=== PATIENT | male | born 1980 | race Caucasian/White ===

== ENCOUNTER 2022-06-08 22:39 | Observation (INO) ==
[2022-06-09] MEDS ORDERED: DEXAMETHASONE SOD INJ 4 MG/ML VIAL IV STA (00:23)
[2022-06-09] MEDS ORDERED: AMPICILLIN/SULBACTAM SOD 3,000 MG in 0.9 % SODIUM CHLORIDE 100 ML IV STA (00:23)
[2022-06-09 00:56] LABS: iSTAT Ionized Calcium 1.15 mmol/l (1.12-1.32); iSTAT Potassium 3.8 mmol/L (3.3-5.0)
[2022-06-09 01:06] LABS: Basophils # (auto) 0.08 K/uL (0-0.2); Basophils % (auto) 0.4 %; Eosinophils # (auto) 0.01 K/uL (0-0.50); Hematocrit (blood only) 49.5 % (42.0-52.0); Hemoglobin 16.6 g/dl (14.0-18.0); Immature Granulocytes # (auto) 0.07 K/uL (0.01-0.20); Immature Granulocytes % (auto) 0.3 %; Lymphocytes # (auto) 2.14 K/uL (1.2-3.4); Lymphocytes % (auto) 10.4 %; Mean Corpuscular Hemoglobin 27.8 pg (25.0-34.0); Mean Corpuscular Hgb Conc 33.5 g/dL (32.0-36.0); Mean Corpuscular Volume 82.8 fL (80.0-100.0); Mean Platelet Volume 9.6 fL (9.4-12.4); Monocytes # (auto) 1.77 K/uL (0.11-0.59); Monocytes % (auto) 8.6 %; Neutrophils # (auto) 16.55 K/uL (1.40-6.50); Neutrophils % (auto) 80.3 %; Platelet Count 268 K/uL (130-400); RDW Coefficient of Variation 13.9 % (11.5-14.5); RDW Standard Deviation 41.6 fL (36.4-46.3); Red Blood Count 5.98 M/uL (4.70-6.10); White Blood Count 20.62 K/ul (4.8-10.8)
[2022-06-09] MEDS ORDERED: OPTIRAY 350 100ml IV ONE (01:07)
[2022-06-09 01:17] LABS: Albumin Globulin Ratio 1.2 (0.9-2); Albumin Level 4.8 gm/dl (3.4-5.0); BUN Creatinine Ratio 12.8 (10-20); Bilirubin,Total 1.6 mg/dl (0.2-1.0); Calcium 9.6 mg/dl (8.6-10.3); Creatinine Clr Calc Pharmacy 111.1 ml/min; Est GFR (African American) 95.8 ml/min; Est GFR (Non-African American) 82.7 ml/min; Potassium 3.8 mmol/L (3.5-5.1); Total Protein 8.8 gm/dl (6.0-8.3)
--- NOTE | 2022-06-09 01:58 | CT Scan Report ---
Exam(s): CT NECK With Contrast IV Amt: 83 ML EXAM: CT Neck With Intravenous Contrast CLINICAL HISTORY: Reason for exam: right peritonsillar edema, possible abscess. TECHNIQUE: Axial computed tomography images of the neck with intravenous contrast. CTDI is 18.84 mGy and DLP is 556.19 mGy-cm. Automated exposure control was utilized for the study. A dose lowering technique was utilized adhering to the principles of ALARA. CONTRAST: Patient received 83 ML of IV contrast COMPARISON: No relevant prior studies available. FINDINGS: Oropharynx: There is moderate right-sided peritonsillar edema with a 4. 6 x 1.6 x 1.2 cm fluid collection (image 35 series 301 and image 161 series 3). Hypopharynx: Unremarkable. Larynx: Unremarkable. Normal epiglottis. Trachea: Unremarkable. Retropharyngeal space: Unremarkable. Submandibular/parotid glands: Unremarkable. Glands are normal in size. Thyroid: Unremarkable. No enlarged or calcified nodules. Bones/joints: No acute fracture. Soft tissues: Unremarkable. Vasculature: No acute findings. Lymph nodes: Unremarkable. No lymphadenopathy. Lung apices: Unremarkable as visualized. IMPRESSION: 4 cm right peritonsillar abscess. Electronically signed by: Naveen Mcclure MD 06/09/22 01:56 AM
--- NOTE | 2022-06-09 02:26 | Emergency Department Note ---
Impression & Plan Peritonsillar abscess ED Provider Note CHIEF COMPLAINT: Sore throat day HISTORY OF PRESENT ILLNESS: This 42-year-old male patient presents to the emergency department via private vehicle for evaluation of sore throat for 1 day. The patient states that he went to urgent care earlier this morning due to the sore throat. He states that he wanted a strep test. This was completed and was negative. The patient was started on Augmentin and prednisone at that time. Throughout the day today, the swelling on the right side of the throat has worsened and the patient is concerned that there is an abscess formed. He does note a fever with Tmax of 101 F earlier today. The patient is having difficulty swallowing due to the pain and swelling. The patient denies any difficulty breathing. REVIEW OF SYSTEMS: A 10 system review of systems was performed with positives and pertinent negatives listed in the history of present illness. All other systems were reviewed and are negative. ALLERGIES: Clarithromycin PHYSICAL EXAM: VITALS: Vitals are noted on the nurse's note and reviewed by myself. Vital signs stable. GENERAL: This is a 42-year-old male, in no acute distress, nondiaphoretic, well- developed well-nourished. SKIN: The skin was without rashes, erythema, edema, or bruising. There is no tenting of the skin. Capillary refill less than 2 seconds. HEAD: Normocephalic atraumatic. EARS: External auditory canals clear, tympanic membranes pearly awan without erythema or effusion bilaterally. EYES: Pupils equal round and reactive to light and accommodation. Conjunctivae without injection, sclerae without icterus. Extraocular movements intact. NOSE: Patent, turbinates without inflammation or discharge. No sinus tenderness. MOUTH: Mucous membranes moist. 4+ right-sided tonsillar enlargement. Pharynx is erythematous and exudative on the right. Uvula midline. Airway patent. Tongue does not deviate. NECK: Supple without nuchal rigidity. Anterior cervical lymphadenopathy. Cervical spine is nontender. No JVD. No stridor HEART: Regular rate and rhythm without murmurs gallops or rubs. LUNGS: Clear to auscultation bilaterally without wheezes, rales or rhonchi. No retractions or accessory muscle use. MUSCULOSKELETAL: No muscle atrophy, erythema, or edema noted. Full range of motion without joint tenderness in all extremities. No tenderness to palpation. Normal gait. Strength 5/5 throughout. NEURO: Patient was alert and oriented to person place and time. No focal neurological deficits. EMERGENCY DEPARTMENT COURSE: The patient was seen and evaluated as above. 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 IV access obtained, labs drawn. Labs show leukocy tosis of 20,000. Question infection vs. reactive due to steroids. Otherwise, no significant renal, hepatic function or electrolyte abnormality. Covid-[address] imaging was concerning for right AIRCRAFT MAINTENANCE SUPERVISOR as noted. I discussed the case with Dr. Toscano. She did review the images. Recommends IV antibiotics (Unasyn) and steroids (Dexamethasone 10mg q8hrs) and she will see the patient in the morning to determine whether I&D is necessary. I discussed the case with Dr. Samuels, [facility] hospitalist physician. He did agree to see and evaluate the patient. Please see hospitalist dictation regarding ongoing management and care of this patient. Differential diagnosis includes pharyngitis, viral infection, upper respiratory infection, peritonsillar abscess, malignancy, among others I attest that I have personally reviewed the patient's current medication list. Blood Pressure Screening: Patient was found to have a slightly elevated blood pressure due to circumstances. I do not believe that the patient requires hypertension monitoring. The chart was completed utilizing [employer] Speech voice recognition software. Grammatical errors, random word insertions, pronoun errors, and incomplete sentences are an occasional consequence of this system due to software limitations, ambient noise, and hardware issues. Any formal questions or concerns about the content, text, or information contained within the body of this dictation should be directly addressed to the provider for clarification. Past Med/Surg History Medical History No pertinent past medical history Social History Smoking Status: Never smoker Preferred Language: Mauritian Feels Safe at Home: Yes Allergies Allergies Allergy/AdvReac Type Severity Reaction Status Date / Time clarithromycin [From Biaxin] Allergy Severe THROAT, Verified 06/09/22 00:31 EYES & FACE SWELLED Home Meds Home Medications Medication Instructions Recorded Confirmed amoxicillin 875 mg-potassium 1 tab PO BID 06/09/22 06/09/22 clavulanate 125 mg tablet ibuprofen 200 mg tablet 600 mg PO DIRECTED PRN Pain 06/09/22 06/09/22 prednisone 20 mg tablet 20 mg PO DAILY 06/09/22 06/09/22 Results & Data (ED) Vital Signs Vital Signs - 24 hr 06/08/22 22:45 06/09/22 02:11 06/09/22 01:11 Temperature 36.2 C L Temperature Source Temporal Artery Scan Pulse Rate 114 H Pulse Rate [Finger] 102 H Respiratory Rate 18 20 Respiratory Effort / Characteristics Non-Labored Spontaneous Respiratory Depth Normal Normal Respiratory Pattern Regular Blood Pressure 171/124 H Blood Pressure [Left Arm] 152/100 H Blood Pressure Mean 139 Blood Pressure Mean [Left Arm] 117 Blood Pressure Position Sitting Blood Pressure Position [Left Arm] Pulse Oximetry 97 98 98 Oxygen Delivery Method Room Air Room Air Room Air Sepsis Recent Fever Within 48 Hours Yes Sepsis New/Unexplained Change in Mental Status No Sepsis Action Taken by Nursing No Action Required 06/09/22 01:11 Temperature Temperature Source Pulse Rate Pulse Rate [Finger] 98 H Respiratory Rate 18 Respiratory Effort / Characteristics Non-Labored Spontaneous Respiratory Depth Normal Respiratory Pattern Regular Blood Pressure Blood Pressure [Left Arm] 147/94 H Blood Pressure Mean Blood Pressure Mean [Left Arm] 111 Blood Pressure Position Blood Pressure Position [Left Arm] Semi-fowlers Pulse Oximetry 98 Oxygen Delivery Method Room Air Sepsis Recent Fever Within 48 Hours Sepsis New/Unexplained Change in Mental Status Sepsis Action Taken by Nursing Laboratory Data 06/09/22 00:37 06/09/22 00:37 Lab Results 06/09/22 06/09/22 06/09/22 Range/Units 00:37 00:37 00:43 WBC 20.62 H (4.8-10.8) K/ul RBC 5.98 (4.70-6.10) M/uL Hgb 16.6 (14.0-18.0) g/dl POC Hgb 18.0 (14.0-18.0) g/dl Hct 49.5 (42.0-52.0) % POC Hct 53 H (42-52) % MCV 82.8 (80.0-100.0) fL MCH 27.8 (25.0-34.0) pg MCHC 33.5 (32.0-36.0) g/dL RDW Std Deviation 41.6 (36.4-46.3) fL RDW Coeff of [place] 13.9 (11.5-14.5) % Plt Count 268 (130-400) K/uL MPV 9.6 (9.4-12.4) fL Immature Gran % (Auto) 0.3 % Neut % (Auto) 80.3 % Lymph % (Auto) 10.4 % [place] % (Auto) 8.6 % Eos % (Auto) 0.0 % Baso % (Auto) 0.4 % Neut # (Auto) 16.55 H (1.40-6.50) K/uL Lymph # (Auto) 2.14 (1.2-3.4) K/uL [place] # (Auto) 1.77 H (0.11-0.59) K/uL Eos # (Auto) 0.01 (0-0.50) K/uL Baso # (Auto) 0.08 (0-0.2) K/uL Immature Gran # (Auto) 0.07 (0.01-0.20) K/uL POC Sodium 136 (135-144) mmol/L Sodium 133 L (136-145) mmol/L POC Potassium 3.8 (3.3-5.0) mmol/L Potassium 3.8 (3.5-5.1) mmol/L POC Chloride 99 L (101-112) mmol/L Chloride 98 (98-107) mmol/L Carbon Dioxide 23 (21-32) mmol/L POC Total CO2 25 (24-31) mmol/L Anion Gap 12 H (3-11) POC Anion Gap 17.0 (16-25) mmol/L POC BUN 15 (7-18) mg/dl BUN 14 (6-23) mg/dl Creatinine 1.09 (0.6-1.4) mg/dl POC Creatinine 1.0 (0.6-1.3) mg/dl Est Cr Clr Drug Dosing 111.1 ml/min Est GFR ( Amer) 95.8 ml/min Est GFR (Non-Af Amer) 82.7 ml/min BUN/Creatinine Ratio 12.8 (10-20) Glucose 114 H (70-99(Fasting)) mg/dl POC Glucose (other) 125 H (70-99) mg/dl Lactate (0.4-2.0) mmol/L Calcium 9.6 (8.6-10.3) mg/dl POC Ioniz Calcium Jasmin 1.15 (1.12-1.32) mmol/l Magnesium 2.4 (1.7-2.4) mg/dl Total Bilirubin 1.6 H (0.2-1.0) mg/dl AST 29 (13-39) U/L ALT 26 (7-52) U/L Alkaline Phosphatase 87 (34-104) U/L Total Protein 8.8 H (6.0-8.3) gm/dl Albumin 4.8 (3.4-5.0) gm/dl Globulin 4.0 (2.5-4.0) gm/dl Albumin/Globulin Ratio 1.2 (0.9-2) SARS-CoV-2, RNA, NAAT (NEGATIVE) Group A Strep (PCR) (NotDetected) 06/09/22 06/09/22 06/09/22 Range/Units 00:50 00:50 03:48 WBC (4.8-10.8) K/ul RBC (4.70-6.10) M/uL Hgb (14.0-18.0) g/dl POC Hgb (14.0-18.0) g/dl Hct (42.0-52.0) % POC Hct (42-52) % MCV (80.0-100.0) fL MCH (25.0-34.0) pg MCHC (32.0-36.0) g/dL RDW Std Deviation (36.4-46.3) fL RDW Coeff of [place] (11.5-14.5) % Plt Count (130-400) K/uL MPV (9.4-12.4) fL Immature Gran % (Auto) % Neut % (Auto) % Lymph % (Auto) % [place] % (Auto) % Eos % (Auto) % Baso % (Auto) % Neut # (Auto) (1.40-6.50) K/uL Lymph # (Auto) (1.2-3.4) K/uL [place] # (Auto) (0.11-0.59) K/uL Eos # (Auto) (0-0.50) K/uL Baso # (Auto) (0-0.2) K/uL Immature Gran # (Auto) (0.01-0.20) K/uL POC Sodium (135-144) mmol/L Sodium (136-145) mmol/L POC Potassium (3.3-5.0) mmol/L Potassium (3.5-5.1) mmol/L POC Chloride (101-112) mmol/L Chloride (98-107) mmol/L Carbon Dioxide (21-32) mmol/L POC Total CO2 (24-31) mmol/L Anion Gap (3-11) POC Anion Gap (16-25) mmol/L POC BUN (7-18) mg/dl BUN (6-23) mg/dl Creatinine (0.6-1.4) mg/dl POC Creatinine (0.6-1.3) mg/dl Est Cr Clr Drug Dosing ml/min Est GFR ( Amer) ml/min Est GFR (Non-Af Amer) ml/min BUN/Creatinine Ratio (10-20) Glucose (70-99(Fasting)) mg/dl POC Glucose (other) (70-99) mg/dl Lactate 1.0 (0.4-2.0) mmol/L Calcium (8.6-10.3) mg/dl POC Ioniz Calcium Jasmin (1.12-1.32) mmol/l Magnesium (1.7-2.4) mg/dl Total Bilirubin (0.2-1.0) mg/dl AST (13-39) U/L ALT (7-52) U/L Alkaline Phosphatase (34-104) U/L Total Protein (6.0-8.3) gm/dl Albumin (3.4-5.0) gm/dl Globulin (2.5-4.0) gm/dl Albumin/Globulin Ratio (0.9-2) SARS-CoV-2, RNA, NAAT NEGATIVE (NEGATIVE) Group A Strep (PCR) NOT DETECTED (NotDetected) Administered Medications Discontinued Medications Dexamethasone (Dexamethasone Sod Inj 4 Mg/Ml Vial) 10 mg IV NOW STA Stop: 06/09/22 00:24 Last Admin: 06/09/22 00:48 Dose: 10 mg Documented By: SES Ampicillin Sodium/Sulbactam Sodium 3,000 mg/ Sodium Chloride 108 mls @ 200 mls/hr IV NOW STA Stop: 06/09/22 00:55 Last Infusion: 06/09/22 01:39 Dose: 0 mls/hr Documented By: Admin: 06/09/22 01:06 Dose: 200 mls/hr Documented By: YARITZA Ioversol (Optiray 350 100ml) 83 ml IV ONCE ONE Stop: 06/09/22 01:08 Last Admin: 06/09/22 01:02 Dose: 83 ml Documented By: ALEXIA Imaging Data Radiologist's Impression: Soft Tissue Neck CT 06/09/22 00:23 Exam(s): CT NECK With Contrast IV Amt: 83 ML EXAM: CT Neck With Intravenous Contrast CLINICAL HISTORY: Reason for exam: right peritonsillar edema, possible abscess. TECHNIQUE: Axial computed tomography images of the neck with intravenous contrast. CTDI is 18.84 mGy and DLP is 556.19 mGy-cm. Automated exposure control was utilized for the study. A dose lowering technique was utilized adhering to the principles of ALARA. CONTRAST: Patient received 83 ML of IV contrast COMPARISON: No relevant prior studies available. FINDINGS: Oropharynx: There is moderate right-sided peritonsillar edema with a 4. 6 x 1.6 x 1.2 cm fluid collection (image 35 series 301 and image 161 series 3). Hypopharynx: Unremarkable. Larynx: Unremarkable. Normal epiglottis. Trachea: Unremarkable. Retropharyngeal space: Unremarkable. Submandibular/parotid glands: Unremarkable. Glands are normal in size. Thyroid: Unremarkable. No enlarged or calcified nodules. Bones/joints: No acute fracture. Soft tissues: Unremarkable. Vasculature: No acute findings. Lymph nodes: Unremarkable. No lymphadenopathy. Lung apices: Unremarkable as visualized. IMPRESSION: 4 cm right peritonsillar abscess. Electronically signed by: Naveen Mcclure MD 06/09/22 01:56 AM Discharge Plan Visit Data Chief Complaint: Throat Pain Stated Complaint: SWELLING TONSIL ED Provider: Aman Priest ED Midlevel Provider: Estephanie Narayanan Discharge Problem: Peritonsillar abscess Patient Disposition: Admitted As Inpatient Forms Stand Alone Forms: [facility] Prescriptions Prescriptions: No Action prednisone 20 mg tablet 20 mg PO DAILY Rx Instructions: STARTED 06/08/22 FOR 5 DAYS. ibuprofen 200 mg Tablet 600 mg PO DIRECTED PRN (Reason: Pain) amoxicillin-pot clavulanate 875-125 mg tablet 1 tab PO BID Rx Instructions: STARTED 06/08/22 FOR 10 DAYS. Referrals Referrals: Carter Cordero MD [Primary Care Provider] -
[2022-06-09] MEDS ORDERED: NSS + 20MEQ KCL 20 MEQ/1,000 ML BAG IV ONE (03:04)
[2022-06-09 03:27] LABS: Magnesium 2.4 mg/dl (1.7-2.4)
--- NOTE | 2022-06-09 04:06 | History & Physical Report ---
Date of Service June 09, 2022 Assessment & Plan (1) Sepsis: Plan: Secondary to right peritonsillar abscess hx manipulation as per records Patient currently without serious signs of upper airway obstruction. Situational hypertension secondary to above Steroid-induced hyperglycemia rule out DM Anxiety, stable off maintenance medications Medical telemetry CS, Unasyn ENT consult Re: Right peritonsillar abscess (ER provider already in touch with Dr. Toscano plans antibiotic Rx along with Decadron 10 mg IV every 8 hours for now. Patient okay to have soft diet as no urgent OR contemplated as per conversation with ER provider.) Analgesia Check hemoglobin A1c DVT prophylaxis per Lovenox subcu Full code Text document was generated using [employer] voice recognition software. It may contain grammatical or spelling errors. Kindly contact undersigned for clarification of any documentation item in question. History of Present Illness Chief Complaint: Sore throat Primary Care Provider: Carter Cordero MD History obtained from patient and records. Medical history significant for anxiety disorder. 2 days ago, patient noted sore throat more on the right odynophagia symptoms. Fever and chills at home. No headache, no chest pain, no SOB. Mild voice change without difficulty in opening the mouth. No prior episodes. Not sure about sick contacts. Patient aggressively digging out tonsil stones at home. Patient seen at urgent care center yesterday. Strep test was negative. Prednisone and Augmentin prescribed for acute tonsillitis. Minimal improvement at home despite compliance with first doses of medication. Patient consulted ER. IV Decadron and Unasyn administered at the ER. Medical History as above Surgical History : Dental surgery Family History : Hypertension Personal/Social history : non-smoker, no EtOH intake, higher level teaching assistant Allergies Allergy/AdvReac Type Severity Reaction Status Date / Time clarithromycin [From Biaxin] Allergy Severe THROAT, Verified 06/09/22 00:31 EYES & FACE SWELLED Home Medications Medication Instructions Recorded Confirmed Type amoxicillin 875 mg-potassium 1 tab PO BID 06/09/22 06/09/22 History clavulanate 125 mg tablet ibuprofen 200 mg tablet 600 mg PO DIRECTED PRN Pain 06/09/22 06/09/22 History methylprednisolone 4 mg tablets in 4 mg PO .as instructed #21 ea 06/09/22 Rx a dose pack (Medrol (Nito)) prednisone 20 mg tablet 20 mg PO DAILY 06/09/22 06/09/22 History Past Med/Surg History Medical History No pertinent past medical history Social History Smoking Status: Never smoker Hx Alcohol Use: No Hx Substance Use: No Preferred Language: Georgian Communication Ability: Effective Demand Planning Analyst Required: No Beliefs That Will Affect Care: None Current Living Situation: Spouse Other Information That Helps Us Care for You: No Feels Safe at Home: Yes Safety Concerns: Feels Safe At This Time Assistive Devices: None Review of Systems Review of Systems: As per HPI, all other systems reviewed and negative Physical Exam Physical Exam: GENERAL: Comfortable, pleasant, obese, no stridor, no respiratory distress SKIN: Normal color, warm HEENT: [place] palpebral conjunctivae, no ptosis, no trismus, dry buccal mucosa, right tonsillar enlargement NECK : Supple, palpable right cervical lymph node with minimal tenderness CHEST : CTA, no tenderness HEART : Tachycardic, no obvious murmurs ABDOMEN: Some distention, nontender EXTREMITIES : No LE swelling/tenderness, no other conspicuous deformities noted NEUROLOGIC : Coherent, no facial asymmetry, no other gross focality Results & Data Results & Data Vital Signs (Past 12 Hours) Vital Signs Temp Pulse Pulse Resp BP BP Pulse Ox 06/09/22 01:11 98 H 18 147/94 H 98 06/09/22 01:11 98 06/09/22 02:11 102 H 20 152/100 H 98 06/08/22 22:45 36.2 C L 114 H 18 171/124 H 97 O2 Del Method 06/09/22 01:11 Room Air 06/09/22 01:11 Room Air 06/09/22 02:11 Room Air 06/08/22 22:45 Room Air Laboratory Results Laboratory Results WBC 20.62 K/ul (4.8-10.8) H 06/09/22 00:37 RBC 5.98 M/uL (4.70-6.10) 06/09/22 00:37 Hgb 16.6 g/dl (14.0-18.0) 06/09/22 00:37 POC Hgb 18.0 g/dl (14.0-18.0) 06/09/22 00:43 Hct 49.5 % (42.0-52.0) 06/09/22 00:37 POC Hct 53 % (42-52) H 06/09/22 00:43 MCV 82.8 fL (80.0-100.0) 06/09/22 00:37 MCH 27.8 pg (25.0-34.0) 06/09/22 00:37 MCHC 33.5 g/dL (32.0-36.0) 06/09/22 00:37 RDW Std Deviation 41.6 fL (36.4-46.3) 06/09/22 00:37 RDW Coeff of [place] 13.9 % (11.5-14.5) 06/09/22 00:37 Plt Count 268 K/uL (130-400) 06/09/22 00:37 MPV 9.6 fL (9.4-12.4) 06/09/22 00:37 Immature Gran % (Auto) 0.3 % 06/09/22 00:37 Neut % (Auto) 80.3 % 06/09/22 00:37 Lymph % (Auto) 10.4 % 06/09/22 00:37 [place] % (Auto) 8.6 % 06/09/22 00:37 Eos % (Auto) 0.0 % 06/09/22 00:37 Baso % (Auto) 0.4 % 06/09/22 00:37 Neut # (Auto) 16.55 K/uL (1.40-6.50) H 06/09/22 00:37 Lymph # (Auto) 2.14 K/uL (1.2-3.4) 06/09/22 00:37 [place] # (Auto) 1.77 K/uL (0.11-0.59) H 06/09/22 00:37 Eos # (Auto) 0.01 K/uL (0-0.50) 06/09/22 00:37 Baso # (Auto) 0.08 K/uL (0-0.2) 06/09/22 00:37 Immature Gran # (Auto) 0.07 K/uL (0.01-0.20) 06/09/22 00:37 POC Sodium 136 mmol/L (135-144) 06/09/22 00:43 Sodium 133 mmol/L (136-145) L 06/09/22 00:37 POC Potassium 3.8 mmol/L (3.3-5.0) 06/09/22 00:43 Potassium 3.8 mmol/L (3.5-5.1) 06/09/22 00:37 POC Chloride 99 mmol/L (101-112) L 06/09/22 00:43 Chloride 98 mmol/L (98-107) 06/09/22 00:37 Carbon Dioxide 23 mmol/L (21-32) 06/09/22 00:37 POC Total CO2 25 mmol/L (24-31) 06/09/22 00:43 Anion Gap 12 (3-11) H 06/09/22 00:37 POC Anion Gap 17.0 mmol/L (16-25) 06/09/22 00:43 POC BUN 15 mg/dl (7-18) 06/09/22 00:43 BUN 14 mg/dl (6-23) 06/09/22 00:37 Creatinine 1.09 mg/dl (0.6-1.4) 06/09/22 00:37 POC Creatinine 1.0 mg/dl (0.6-1.3) 06/09/22 00:43 Est Cr Clr Drug Dosing 111.1 ml/min 06/09/22 00:37 Est GFR ( Amer) 95.8 ml/min 06/09/22 00:37 Est GFR (Non-Af Amer) 82.7 ml/min 06/09/22 00:37 BUN/Creatinine Ratio 12.8 (10-20) 06/09/22 00:37 Glucose 114 mg/dl (70-99(Fasting)) H 06/09/22 00:37 POC Glucose (other) 125 mg/dl (70-99) H 06/09/22 00:43 Lactate 1.0 mmol/L (0.4-2.0) 06/09/22 03:48 Calcium 9.6 mg/dl (8.6-10.3) 06/09/22 00:37 POC Ioniz Calcium Jasmin 1.15 mmol/l (1.12-1.32) 06/09/22 00:43 Magnesium 2.4 mg/dl (1.7-2.4) 06/09/22 00:37 Total Bilirubin 1.6 mg/dl (0.2-1.0) H 06/09/22 00:37 AST 29 U/L (13-39) 06/09/22 00:37 ALT 26 U/L (7-52) 06/09/22 00:37 Alkaline Phosphatase 87 U/L (34-104) 06/09/22 00:37 Total Protein 8.8 gm/dl (6.0-8.3) H 06/09/22 00:37 Albumin 4.8 gm/dl (3.4-5.0) 06/09/22 00:37 Globulin 4.0 gm/dl (2.5-4.0) 06/09/22 00:37 Albumin/Globulin Ratio 1.2 (0.9-2) 06/09/22 00:37 SARS-CoV-2, RNA, NAAT NEGATIVE (NEGATIVE) 06/09/22 00:50 Group A Strep (PCR) NOT DETECTED (NotDetected) 06/09/22 00:50 Impressions Soft Tissue Neck CT 06/09/22 00:23 Exam(s): CT NECK With Contrast IV Amt: 83 ML EXAM: CT Neck With Intravenous Contrast CLINICAL HISTORY: Reason for exam: right peritonsillar edema, possible abscess. TECHNIQUE: Axial computed tomography images of the neck with intravenous contrast. CTDI is 18.84 mGy and DLP is 556.19 mGy-cm. Automated exposure control was utilized for the study. A dose lowering technique was utilized adhering to the principles of ALARA. CONTRAST: Patient received 83 ML of IV contrast COMPARISON: No relevant prior studies available. FINDINGS: Oropharynx: There is moderate right-sided peritonsillar edema with a 4. 6 x 1.6 x 1.2 cm fluid collection (image 35 series 301 and image 161 series 3). Hypopharynx: Unremarkable. Larynx: Unremarkable. Normal epiglottis. Trachea: Unremarkable. Retropharyngeal space: Unremarkable. Submandibular/parotid glands: Unremarkable. Glands are normal in size. Thyroid: Unremarkable. No enlarged or calcified nodules. Bones/joints: No acute fracture. Soft tissues: Unremarkable. Vasculature: No acute findings. Lymph nodes: Unremarkable. No lymphadenopathy. Lung apices: Unremarkable as visualized. IMPRESSION: 4 cm right peritonsillar abscess. Electronically signed by: Naveen Mcclure MD 06/09/22 01:56 AM Diagnostic Findings EKG as per my interpretation : Rate 95, NSR, normal axis, no ischemia
[2022-06-09] MEDS ORDERED: ACETAMINOPHEN 325 MG TAB PO PRN (04:11)
[2022-06-09] MEDS ORDERED: LORazepam 0.5 MG TAB PO PRN (04:11)
[2022-06-09] MEDS ORDERED: traMADol HCL 50 MG TABLET PO PRN (04:11)
[2022-06-09] MEDS ORDERED: MoRPHine SULFATE 4 MG/ML 1 ML CARP\\VIAL IV PRN (04:11)
[2022-06-09] MEDS ORDERED: PROMETHAZINE HCL 12.5 MG in SODIUM CHLORIDE 0.9% 50 ML IV PRN (04:11)
[2022-06-09] MEDS: AMPICILLIN/SULBACTAM SOD 3,000 MG in 0.9 % SODIUM CHLORIDE 100 ML IV SCH ×2 (06:39→12:58)
[2022-06-09] MEDS ORDERED: DEXAMETHASONE SOD INJ 4 MG/ML VIAL IV SCH (08:00)
--- NOTE | 2022-06-09 08:46 | Hospitalist Progress Note ---
Date of Service June 09, 2022 Assessment & Plan (1) Sepsis: Plan: Secondary to right peritonsillar abscess hx manipulation as per records Patient currently without serious signs of upper airway obstruction. Situational hypertension secondary to above Steroid-induced hyperglycemia rule out DM Anxiety, stable off maintenance medications Medical telemetry CS, Unasyn ENT consult Re: Right peritonsillar abscess (ER provider already in touch with Dr. Toscano plans antibiotic Rx along with Decadron 10 mg IV every 8 hours for now. Patient okay to have soft diet as no urgent OR contemplated as per conversation with ER provider.) Analgesia Check hemoglobin A1c DVT prophylaxis per Lovenox subcu Full code Text document was generated using [employer] voice recognition software. It may contain grammatical or spelling errors. Kindly contact undersigned for clarification of any documentation item in question. (2) Peritonsillar abscess: Admission and Anticipated Discharge Date Admission Date: June 09, 2022 Results & Data Results & Data Vital Signs (Past 12 Hours) Vital Signs Temp Pulse Pulse Resp BP BP BP 06/09/22 07:31 37.1 C 95 H 18 146/91 H 06/09/22 05:33 99 H 06/09/22 05:10 37 C 111 H 18 159/113 H 06/09/22 04:46 06/09/22 01:11 98 H 18 147/94 H 06/09/22 01:11 06/09/22 02:11 102 H 20 152/100 H 06/08/22 22:45 36.2 C L 114 H 18 171/124 H Pulse Ox O2 Del Method 06/09/22 07:31 96 Room Air 06/09/22 05:33 06/09/22 05:10 96 Room Air 06/09/22 04:46 Room Air 06/09/22 01:11 98 Room Air 06/09/22 01:11 98 Room Air 06/09/22 02:11 98 Room Air 06/08/22 22:45 97 Room Air Laboratory Results Short CBC 06/09/22 Range/Units 00:37 WBC 20.62 H (4.8-10.8) K/ul Hgb 16.6 (14.0-18.0) g/dl Hct 49.5 (42.0-52.0) % Plt Count 268 (130-400) K/uL BMP 06/09/22 00:37 Sodium 133 L Potassium 3.8 Chloride 98 Carbon Dioxide 23 BUN 14 Creatinine 1.09 Glucose 114 H Calcium 9.6 Liver Function 06/09/22 Range/Units 00:37 Total Bilirubin 1.6 H (0.2-1.0) mg/dl AST 29 (13-39) U/L ALT 26 (7-52) U/L Alkaline Phosphatase 87 (34-104) U/L Albumin 4.8 (3.4-5.0) gm/dl Diagnostic Findings Soft Tissue Neck CT 06/09/22 00:23 Exam(s): CT NECK With Contrast IV Amt: 83 ML EXAM: CT Neck With Intravenous Contrast CLINICAL HISTORY: Reason for exam: right peritonsillar edema, possible abscess. TECHNIQUE: Axial computed tomography images of the neck with intravenous contrast. CTDI is 18.84 mGy and DLP is 556.19 mGy-cm. Automated exposure control was utilized for the study. A dose lowering technique was utilized adhering to the principles of ALARA. CONTRAST: Patient received 83 ML of IV contrast COMPARISON: No relevant prior studies available. FINDINGS: Oropharynx: There is moderate right-sided peritonsillar edema with a 4. 6 x 1.6 x 1.2 cm fluid collection (image 35 series 301 and image 161 series 3). Hypopharynx: Unremarkable. Larynx: Unremarkable. Normal epiglottis. Trachea: Unremarkable. Retropharyngeal space: Unremarkable. Submandibular/parotid glands: Unremarkable. Glands are normal in size. Thyroid: Unremarkable. No enlarged or calcified nodules. Bones/joints: No acute fracture. Soft tissues: Unremarkable. Vasculature: No acute findings. Lymph nodes: Unremarkable. No lymphadenopathy. Lung apices: Unremarkable as visualized. IMPRESSION: 4 cm right peritonsillar abscess. Electronically signed by: Naveen Mcclure MD 06/09/22 01:56 AM Medications Administered Current Inpatient Medications Acetaminophen (Acetaminophen 325 Mg Tab) 650 mg PO Q6H PRN PRN Reason: Fever/pain Stop: 07/09/22 04:10 Enoxaparin Sodium (Enoxaparin Inj 40 Mg/0.4 Ml Syr) 40 mg SQ QAM STEPH Stop: 07/09/22 08:59 Potassium Chloride/Sodium Chloride (Normal Saline W/20 Meq Kcl) 20 meq in 1,000 mls @ 75 mls/hr IV .[id number]; Protocol Stop: 06/09/22 16:23 Promethazine HCl 12.5 mg/ (Sodium Chloride) 50.5 mls @ 202 mls/hr IV Q6H PRN PRN Reason: Nausea And Vomiting Stop: 07/09/22 04:10 Ampicillin Sodium/Sulbactam Sodium 3,000 mg/ Sodium Chloride 108 mls @ 200 mls/hr IV Q6H STEPH; Protocol Stop: 06/19/22 05:59 Last Infusion: 06/09/22 07:12 Dose: Infused Dexamethasone 10 mg/ Syringe 2.5 mls @ 1 mls/min IV Q8H STEPH Stop: 07/09/22 07:59 Lorazepam (Lorazepam 0.5 Mg Tab) 0.5 mg PO TID PRN PRN Reason: Anxiety Stop: 07/09/22 04:10 Morphine Sulfate (Morphine Sulfate 4 Mg/Ml 1 Ml Carp\Vial) 4 mg IV Q4H PRN PRN Reason: Pain Stop: 06/23/22 04:10 Tramadol HCl (Tramadol Hcl 50 Mg Tablet) 25 - 50 mg PO Q4H PRN PRN Reason: Pain Stop: 07/09/22 04:10
[2022-06-09] MEDS ORDERED: ENOXAPARIN INJ 40 MG/0.4 ML SYR SQ SCH (09:00)
[2022-06-09] MEDS: dexAMETHasone 10 MG in SYRINGE 0 ML IV SCH ×2 (09:04→14:54)
--- NOTE | 2022-06-09 10:19 | ENT Consultation ---
Date of Consultation June 09, 2022 Assessment & Plan (1) Tonsillar abscess: Plan 42yM with early R tonsillar abscess, much improved on IV abx/steroids. Discussed that imaging showed an early fluid collection that was unlikely to benefit from I+D, although this was offered if patient desired. He did decline as he is improved which is reasonable. -Continue unasyn and decadron 10mg Q8H, would keep patient for 1 more dose of each -If stable/continuing to improve this afternoon, ok for d/c home from ENT standpoint. Will need augmentin x10 days total and medrol dosepak on discharge -F/u 2 weeks - [phone], return to ED with worsening symptoms History of Present Illness Attending Physician: Sherie Hernandez, History of Present Illness 42yM seen in consultation for R tonsillar abscess. Reports sore throat 4 days ago and noted a tonsillith. Aggressively attempted removal. Then worsening R sore throat, odynophagia. Seen at urgent care and started on augmentin and steroids. Worsening symptoms and presented to ED. WBC 20, CT neck showed per my read a 1.2 x 1.5cm R tonsillar phlegmon vs. early abscess and reactive R lymphadenopathy. Admitted for IV abx/steroids. Feeling much better this AM. Tolerating diet and secretions. Minimal throat pain and odynophagia. Never smoker, no chewing tobacco or heavy EtOH use. PMH: otherwise healthy PSH: noncontributory, no prior tonsillectomy FHx: noncontributory SHx: teacher, see above ROS: A 10 point ROS is negative except as noted above. No otalgia Allergies Allergy/AdvReac Type Severity Reaction Status Date / Time clarithromycin [From Biaxin] Allergy Severe THROAT, Verified 06/09/22 00:31 EYES & FACE SWELLED Home Medications Medication Instructions Recorded Confirmed Type amoxicillin 875 mg-potassium 1 tab PO BID 06/09/22 06/09/22 History clavulanate 125 mg tablet ibuprofen 200 mg tablet 600 mg PO DIRECTED PRN Pain 06/09/22 06/09/22 History prednisone 20 mg tablet 20 mg PO DAILY 06/09/22 06/09/22 History Patient History Medical History No pertinent past medical history Social History Smoking Status: Never smoker Hx Alcohol Use: No Hx Substance Use: No Preferred Language: Finnish Communication Ability: Effective Autocutter Required: No Beliefs That Will Affect Care: None Current Living Situation: Spouse Other Information That Helps Us Care for You: No Feels Safe at Home: Yes Safety Concerns: Feels Safe At This Time Assistive Devices: None Physical Exam Physical Exam: WNWD, NAD EOMI, normal sclera Nares patent, no external deformity External ears normal Normal voice Oral cavity clear, no trismus Mild erythema and fullness R tonsil extending to soft palate without uvular deviation. 2+ tonsils. No exudate. 2cm R level II node Nonlabored respirations, no stridor AAO x3 Moving all extremities spontaneously Results & Data Vital Signs (Past 12 Hours) Vital Signs Temp Pulse Pulse Resp BP BP BP 06/09/22 07:31 37.1 C 95 H 18 146/91 H 06/09/22 05:33 99 H 06/09/22 05:10 37 C 111 H 18 159/113 H 06/09/22 04:46 06/09/22 01:11 98 H 18 147/94 H 06/09/22 01:11 06/09/22 02:11 102 H 20 152/100 H 06/08/22 22:45 36.2 C L 114 H 18 171/124 H Pulse Ox O2 Del Method 06/09/22 07:31 96 Room Air 06/09/22 05:33 06/09/22 05:10 96 Room Air 06/09/22 04:46 Room Air 06/09/22 01:11 98 Room Air 06/09/22 01:11 98 Room Air 06/09/22 02:11 98 Room Air 06/08/22 22:45 97 Room Air PG Care Time/CCT Total # of Minutes Spent Total Time Spent with Patient: Total time spent is greater than 50% in coordination of care (as documented) at patient's floor/unit and/or counseling patient: Coding Level of Care Code 05574 IN/OBS CONSULT LVL 4,60M Diagnoses Tonsillar abscess J36
[2022-06-09 11:12] LABS: Estimated Average Glucose 117 mg/dl; Hemoglobin A1C 5.7 % (4.5-5.6)
--- NOTE | 2022-06-09 11:24 | Discharge Summary ---
Discharge Summary Date of Service June 09, 2022 Admission HPI Per Admitting Provider History obtained from patient and records. Medical history significant for anxiety disorder. 2 days ago, patient noted sore throat more on the right odynophagia symptoms. Fever and chills at home. No headache, no chest pain, no SOB. Mild voice change without difficulty in opening the mouth. No prior episodes. Not sure about sick contacts. Patient aggressively digging out tonsil stones at home. Patient seen at urgent care center yesterday. Strep test was negative. Prednisone and Augmentin prescribed for acute tonsillitis. Minimal improvement at home despite compliance with first doses of medication. Patient consulted ER. IV Decadron and Unasyn administered at the ER. Medical History as above Surgical History : Family History : Personal/Social history : Principal Dx & Hospital Course #1 = Principal Diagnosis (1) Sepsis: Secondary to right peritonsillar abscess hx manipulation as per records Patient currently without serious signs of upper airway obstruction. Situational hypertension secondary to above Steroid-induced hyperglycemia rule out DM Anxiety, stable off maintenance medications Medical telemetry CS, Unasyn ENT consult Re: Right peritonsillar abscess (ER provider already in touch with Dr. Toscano plans antibiotic Rx along with Decadron 10 mg IV every 8 hours for now. Patient okay to have soft diet as no urgent OR contemplated as per conversation with ER provider.) Analgesia Check hemoglobin A1c DVT prophylaxis per Lovenox subcu Full code Text document was generated using [employer] voice recognition software. It may contain grammatical or spelling errors. Kindly contact undersigned for clarification of any documentation item in question. Updated Medication List Medication Instructions Recorded Confirmed Type amoxicillin 875 mg-potassium 1 tab PO BID 06/09/22 06/09/22 History clavulanate 125 mg tablet ibuprofen 200 mg tablet 600 mg PO DIRECTED PRN Pain 06/09/22 06/09/22 History methylprednisolone 4 mg tablets in 4 mg PO .as instructed #21 ea 06/09/22 Rx a dose pack (Medrol (Nito)) prednisone 20 mg tablet 20 mg PO DAILY 06/09/22 06/09/22 History Hospital Stay Data Consultations 06/09/22 03:12 ED Decision to Admit Stat 06/09/22 04:11 Consult Otolaryngology (Head and Neck) Routine Diagnostic Imagining Performed 04/22/23 00:23 CT soft tissue neck w con Stat Pending Results Patient Have Any Pending Studies at Discharge: No Discharge Instructions Given to Patient (Per Discharging Provider) Please complete all the Augmentin (8 days) with the pills you have at home (total 10 days of antibiotics recommended). Please follow taper instructions below for steroid taper: Day 1: 24 mg on day 1 administered as 8 mg (2 tablets) before breakfast, 4 mg (1 tablet) after lunch, 4 mg (1 tablet) after supper, and 8 mg (2 tablets) at [id number] mg (6 tablets) as a single dose or divided into 2 or 3 doses upon initiation (regardless of time of day). Day 2: 20 mg on day 2 administered as 4 mg (1 tablet) before breakfast, 4 mg (1 tablet) after lunch, 4 mg (1 tablet) after supper, and 8 mg (2 tablets) at bedtime. Day 3: 16 mg on day 3 administered as 4 mg (1 tablet) before breakfast, 4 mg (1 tablet) after lunch, 4 mg (1 tablet) after supper, and 4 mg (1 tablet) at bedtime. Day 4: 12 mg on day 4 administered as 4 mg (1 tablet) before breakfast, 4 mg (1 tablet) after lunch, and 4 mg (1 tablet) at bedtime. Day 5: 8 mg on day 5 administered as 4 mg (1 tablet) before breakfast and 4 mg (1 tablet) at bedtime. Day 6: 4 mg on day 6 administered as 4 mg (1 tablet) before breakfast. Please see Dr. Shaq Toscano in two weeks for followup. It is recommended that you followup with your primary care physician within one week of hospital discharge to critical [facility] since returning home from the hospital. It was a pleasure taking care of you! Please call if you have any questions or problems. You can reach a [facility] hospitalist on duty at [facility] 24 hours a day by calling [phone]. Take care of yourself. Sherie Hernandez, [facility] Center[facility]
--- NOTE | 2022-06-09 13:08 | Electrocardiogram Report ---
Test Reason : Blood Pressure : / mmHG Vent. Rate : 098 BPM Atrial Rate : 098 BPM P-R Int : 154 ms QRS Dur : 102 ms QT Int : 356 ms P-R-T Axes : 043 009 038 degrees QTc Int : 454 ms Normal sinus rhythm Normal ECG When compared with ECG of 16-NOV-2002 08:23, QT has lengthened Confirmed by Robert Steele ([id number]) on 06/09/2022 1:08:19 PM Referred By: REFERRED SELF Confirmed By:Robert Steele
== END 2022-06-09 15:00 | disposition home or self-care (01) ==
LOC: ED 22:39 → INTOOBSV 06-09 04:08 → 2S 06-09 04:08